=== PATIENT | female | born 1985 | race Caucasian/White ===

== ENCOUNTER 2017-05-02 12:29 | Outpatient (CLI) | payer OTHER ==
--- NOTE | 2017-05-04 15:05 | XRay Report ---
Left shoulder: Shoulder pain. AP and outlet views and left shoulder demonstrate normal bone and soft tissue structures. The joint space is aligned and preserved. Normal subacromial space. Impression: Normal exam.
== END 2017-05-02 12:30 | disposition home or self-care (01) ==
LOC: SPVIMAG 12:29
PROVIDERS: ATTEND Orthopaedic Surgery
DX: M25.512 Pain in left shoulder (principal)